=== PATIENT | male | born 2000 | race Caucasian/White ===

== ENCOUNTER 2019-12-03 13:15 | Emergency (ER) | payer MEDICAID ==
[~2019-12-03] VITALS: Ht 190.5 cm; Wt 149.7 kg
[2019-12-03 13:43] VITALS: Ht 190.5 cm; Wt 149.7 kg
[2019-12-03 16:40] VITALS: BP 128/97
== END 2019-12-03 16:40 | disposition home or self-care (01) ==
LOC: ED 13:15
DX: S39.012A Strain of muscle, fascia and tendon of lower back, initial encounter (principal); X58.XXXA Exposure to other specified factors, initial encounter; Y93.89 Activity, other specified; Y92.89 Other specified places as the place of occurrence of the external cause; Y99.8 Other external cause status
CPT/HCPCS: J1885; J3010